=== PATIENT | female | born 1975 | race Caucasian/White ===

== ENCOUNTER 2017-04-08 10:18 | Inpatient (IN) | payer BC ==
[2017-04-08] MEDS ORDERED: Butorphanol 1 MG/ML SDV IVPUSH PRN (10:49)
[2017-04-08] MEDS ORDERED: Nalbuphine 10 MG/1 ML Vial IVPUSH PRN (10:49)
[2017-04-08] MEDS ORDERED: Sodium Chloride 0.9% 10 ML Syringe FLUSH PRN (10:49)
[2017-04-08] MEDS ORDERED: Misoprostol 200 MCG Tab PO PRN (10:49)
[2017-04-08] MEDS ORDERED: Water For Irrigation,Sterile 1,000 ML Container IRR PRN (10:49)
[2017-04-08] MEDS ORDERED: Lidocaine 1% 50 ML MDV INJECT PRN (10:49)
[2017-04-08] MEDS ORDERED: Methylergonovine 0.2 MG/1 ML Amp IM PRN (10:49)
[2017-04-08] MEDS ORDERED: Terbutaline 1 MG/ML SDV SUBCUT PRN (10:49)
[2017-04-08] MEDS ORDERED: Sodium Chloride 0.9% 2.5 ML Syringe FLUSH PRN (10:49)
[2017-04-08] MEDS ORDERED: Carboprost Tromethamine 250 MCG/1 ML Amp IM PRN (10:49)
[2017-04-08] MEDS ORDERED: Misoprostol 25 MCG (1/4 of 100 MCG) Tab VAG PRN (10:49)
[2017-04-08] MEDS ORDERED: Ampicillin 2 GM in Sodium Chloride 0.9% 100 ML IV ONE (10:49)
[2017-04-08] MEDS ORDERED: Oxytocin/0.9 % Sodium Chloride 30 UNIT/500 ML BAG IV SCH (11:00)
[2017-04-08] MEDS: Lactated Ringers 1,000 ML IV SCH ×3 (11:10→18:19)
[2017-04-08] MEDS: Ampicillin 1 GM in Sodium Chloride 0.9% 50 ML IV SCH ×3 (15:43→23:40)
[2017-04-08] MEDS ORDERED: ePHEDrine 50 MG/ML SDV ONE (17:36)
[2017-04-08] MEDS ORDERED: Ropivacaine 0.2% 2 MG/ML 20 ML SDV ONE (17:37)
[2017-04-08] MEDS ORDERED: fentaNYL 100 MCG/2 ML SDV ONE (17:37)
[2017-04-08] MEDS ORDERED: Ropivacaine HCl/PF 100 ML ONE (17:37)
--- NOTE | 2017-04-08 18:26 | PCM.PREANE ---
Preanesthetic Assessment - Procedure Proposed Procedure: labor epidural - Anesthesia/Transfusion/Family Hx Anesthesia History: Prior Anesthesia Without Reaction Family History of Anesthesia Reaction: No Transfusion History: No Prior Transfusion(s) - Review of Systems General: No Symptoms, Other (gestational diabetes) Pulmonary: No Symptoms Cardiovascular: Other (htn with ) Gastrointestinal: No Symptoms Neurological: No Symptoms Other: Reports: None - Physical Assessment Pulse: 92 O2 Sat by Pulse Oximetry: 96 Respiratory Rate: 20 Blood Pressure: 142/80 Height: 1.71 m Weight: 240 kg ASA Class: 2 Mental Status: Alert & Oriented x3 Airway Class: Mallampati = 2 Dentition: Reports: Normal Dentition Thyro-Mental Finger Breadths: 3 Mouth Opening Finger Breadths: 3 ROM/Head Extension: Full Lungs: Clear to Auscultation Cardiovascular: Regular Rate - Lab Values: Laboratory Last Values WBC 9.48 K/uL (4.0-11.0) 04/08/17 11:07 RBC 4.38 M/uL (4.30-5.90) 04/08/17 11:07 Hgb 13.8 g/dL (12.0-16.0) 04/08/17 11:07 Hct 40.4 % (36.0-46.0) 04/08/17 11:07 MCV 92.2 fL (80.0-98.0) 04/08/17 11:07 MCH 31.5 pg (27.0-32.0) 04/08/17 11:07 MCHC 34.2 g/dL (31.0-37.0) 04/08/17 11:07 RDW Std Deviation 45.3 fl (28.0-62.0) 04/08/17 11:07 RDW Coeff of Agatha 14 % (11.0-15.0) 04/08/17 11:07 Plt Count 170 K/uL (150-400) 04/08/17 11:07 MPV 9.90 fL (7.40-12.00) 04/08/17 11:07 Nucleated RBC % 0.0 /100WBC 04/08/17 11:07 Nucleated RBCs # 0 K/uL 04/08/17 11:07 POC Glucose 79 mg/dL (60-110) 04/08/17 16:58 Blood Type A POSITIVE 04/08/17 11:07 Antibody Screen NEGATIVE 04/08/17 11:07 - Allergies Allergies/Adverse Reactions: Allergies Allergy/AdvReac Type Severity Reaction Status Date / Time latex Allergy Rash Verified 08/02/14 09:27 miconazole Allergy Burning Verified 03/24/17 17:52 [From Monistat 1 Combo Pack] - Blood Blood Available: Yes Product(s) Available: PRBC - Anesthesia Plan Pre-Op Medication Ordered: None - Acknowledgements Anesthesia Type Planned: Epidural Pt an Appropriate Candidate for the Planned Anesthesia: Yes Alternatives and Risks of Anesthesia Discussed w Pt/Guardian: Yes Pt/Guardian Understands and Agrees with Anesthesia Plan: Yes PreAnesthesia Questionnaire Other OB/BYN History: pre-eclampsia with first . Patient states has had to be induced with every . Endocrine/Metabolic History: Reports: Diabetes, Gestational Oncologic (Cancer) History: Reports: Basal Cell Carcinoma - Past Surgical History GI Surgical History: Reports: None Endocrine Surgical History: Reports: None Oncologic Surgical History: Reports: Other (See Below) Other Oncologic Surgeries/Procedures: biopsy of skin >10 years - SUBSTANCE USE Smoking Status *Q: Never Smoker Second Hand Smoke Exposure: No Recreational Drug Use History: No - CURRENT (IN HOUSE) MEDS Current Meds: Current Medications Butorphanol Tartrate (Stadol) 1 mg IVPUSH ASDIRECTED PRN PRN Reason: Pain Carboprost Tromethamine (Hemabate Ds) 250 mcg IM ASDIRECTED PRN PRN Reason: Post Hemorrhage Lactated Ringer's (Ringers, Lactated) 1,000 mls @ 150 mls/hr IV ASDIRECTED OTPHER Last Admin: 04/08/17 18:19 Dose: 150 mls/hr Oxytocin/Sodium Chloride (Oxytocin 30 Unit/500 Ml-Ns) 30 unit in 500 mls @ 2 mls/hr IV TITRATE TOPHER; 2 MUNITS/MIN PRN Reason: Protocol Last Titration: 04/08/17 17:42 Dose: 10 munits/min, 10 mls/hr Ampicillin Sodium 1 gm/ Sodium (Chloride) 50 mls @ 100 mls/hr IV Q4H TOPHER Last Admin: 04/08/17 15:43 Dose: 100 mls/hr Lidocaine HCl (Xylocaine 1%) 50 ml INJECT .ONCE PRN PRN Reason: Laceration repair Methylergonovine Maleate (Methergine) 0.2 mg IM ASDIRECTED PRN PRN Reason: Post Hemorrhage Misoprostol (Cytotec) 200 mcg PO .ONCE PRN PRN Reason: Post Hemorrhage Misoprostol (Cytotec) 25 mcg VAG Q6H PRN PRN Reason: Cervical Ripening Last Admin: 04/08/17 11:23 Dose: 25 mcg Nalbuphine HCl (Nubain) 10 mg IVPUSH ASDIRECTED PRN PRN Reason: Pain (severe 7-10) Sodium Chloride (Saline Flush) 10 ml FLUSH ASDIRECTED PRN PRN Reason: Keep Vein Open Sodium Chloride (Saline Flush) 2.5 ml FLUSH ASDIRECTED PRN PRN Reason: Keep Vein Open Sterile Water (Sterile Water For Irrigation) 1,000 ml IRR ASDIRECTED PRN PRN Reason: delivery Terbutaline Sulfate (Brethine) 0.25 mg SUBCUT ASDIRECTED PRN PRN Reason: Tacysystole Discontinued Medications Ephedrine Sulfate (Ephedrine Sulfate) Confirm Administered Dose 50 mg .ROUTE .STK-MED ONE Stop: 04/08/17 17:37 Fentanyl (Sublimaze) Confirm Administered Dose 300 mcg .ROUTE .STK-MED ONE Stop: 04/08/17 17:38 Ampicillin Sodium 2 gm/ Sodium (Chloride) 100 mls @ 200 mls/hr IV ONETIME ONE Stop: 04/08/17 11:18 Last Admin: 04/08/17 11:23 Dose: 200 mls/hr Ropivacaine (Naropin 0.2%) Confirm Administered Dose 100 mls @ as directed .ROUTE .STK-MED ONE Stop: 04/08/17 17:38 Ropivacaine (Naropin 0.2%) Confirm Administered Dose 20 ml .ROUTE .STK-MED ONE Stop: 04/08/17 17:38
--- NOTE | 2017-04-08 18:38 | PCM.PRNOTE ---
- Free Text/Narrative Note: Called for a labor epidural for patient c/o labor pain. Patient identified and history reviewed. Patient has had 6 prior epidurals for labor, relates one occurrence of hypotension with epidural placement. Discussed procedure and risks including bleeding, infection, nerve pain, nerve damage and unsuccessful epidural. Patient agrees. Sitting up, sterile betadine prep times 3 and sterile drape. 1% lidocaine SQ at L4 #25 Touhy advanced os x 1, needle redirected CARMELITA but catheter does not thread x 2. Heme noted needle withdrawn. L3 localized as previous. Touhy advanced CARMELITA saline to approximately 5 cm. Catheter easily advanced to 10 cm. No heme no paresthesia. Test dose 3 ml 1.5% lidocaine with epinephrine 1:200,000. negative reaction. Bolus of fentanyl 100 mcg given with 4 ml 0.2% ropivicaine. Patient reports pain relief after 2 contractions. Level noted to be T10 bilaterally with cold/wet sensation. Epidural drip of 0.2% ropivicaine and Fentanyl 2 mcg/ml started at 8 ml/hr. Pt tolerated well.
[2017-04-08] MEDS ORDERED: Ondansetron 4 MG/2 ML SDV IVPUSH PRN (21:35)
[2017-04-09] MEDS ORDERED: Ampicillin/Sulbactam Na 3 GM in Sodium Chloride 0.9% 100 ML IV ONE (01:20)
[2017-04-09] MEDS ORDERED: Acetaminophen 500 MG Tab PO PRN (01:20)
[2017-04-09] MEDS ORDERED: Docusate Sodium 100 MG Cap PO PRN (01:20)
[2017-04-09] MEDS ORDERED: Misoprostol 200 MCG Tab PO PRN (01:20)
[2017-04-09] MEDS ORDERED: Witch Hazel Medicated Pads 40/Jar TOP PRN (01:20)
[2017-04-09] MEDS ORDERED: Benzocaine/Menthol 20%-0.5% Spray 78 GM Cannister TOP PRN (01:20)
[2017-04-09] MEDS ORDERED: Bisacodyl 10 MG Supp RECTAL PRN (01:20)
[2017-04-09] MEDS ORDERED: Lanolin 100% Cream 7 GM Tube TOP PRN (01:20)
--- NOTE | 2017-04-09 02:11 | OR ---
SURGEON: Kateryna Francis M.D. DATE OF PROCEDURE: 04/08/2017 PREOPERATIVE DIAGNOSIS: 38-week intrauterine , gestational diabetes type A2, transient hypertension of , group B strep positive, advanced maternal age. POSTOPERATIVE DIAGNOSIS: 38-week intrauterine , gestational diabetes type A2, transient hypertension of , group B strep positive, advanced maternal age. PROCEDURE: Pitocin induction of labor, term spontaneous vaginal delivery, group B strep prophylaxis. ANESTHESIA: Epidural. ESTIMATED BLOOD LOSS: Less than 200 mL. FINDINGS: Live born female. scores 8 and 9. Weight is pending at the time of dictation. Perineum intact. Placenta was delivered spontaneously. Rivera intact, but with trailing membranes. Manual exploration of the uterus revealed no retained placental products. COMPLICATIONS: None known. DISPOSITION: Mother and baby are in LDRP in good condition. BRIEF HISTORY: This is a 41-year-old female. She is G7, P6, presents at 38 weeks' gestation with elevated blood pressures over the last 3 weeks. She has had serial laboratory studies and serial 24-hour urines, all of which have been negative for preeclampsia, therefore she was given the diagnosis of transient hypertension of . She also has gestational diabetes. She has been on NPH 10 units at bedtime with good control of blood sugars. She presents for induction of labor. She received a single dose of Cytotec followed by Pitocin. She received an epidural for pain control. She had artificial rupture of membranes after receiving 2 doses of ampicillin. She continued, initially she was 1-2 cm and fairly thick and high. When she was 3-4 cm 70% effaced, she had an IUPC placed. Pitocin was continued to a maximum of 18 milliunits per minute. She had category 1 heart tones. She progressed to complete. DESCRIPTION OF PROCEDURE: The patient pushed once to a 5+ station, at which time the head was delivered spontaneously and atraumatically over the perineum with support with subsequent delivery of the 's shoulders and body without any difficulty. The was bulb suctioned by nose and mouth and handed to the mother in the presence of the nurse attending delivery. The was a liveborn female. scores 8 and 9. Weight is pending at the time of dictation. After the cord had ceased to pulsate, it was doubly clamped and cut. Cord blood was collected for cord ABGs as well as routine cord blood sampling. Pitocin was initiated after delivery of the infant to assist with delivery of the placenta which was delivered. Rivera intact, but with trailing membranes. After the membranes had been carefully and slowly removed with a ring forceps, manual exploration of the uterus was performed to ensure that there was no retained placenta or membrane fragments and there were was none. There were also no periurethral, vaginal sidewall, cervical, rectal, or perineal lacerations. EBL was less than 200 mL. There were no known complications. Mother and are in LDRP in good condition. She will be continued on Unasyn for prophylaxis due to manual exploration of the uterus. TONY / OMEGA /[id number]
[2017-04-09 06:24] LABS: CHLORIDE,CL 108 mmol/L (98-110); SODIUM,NA 137 mmol/L (136-146)
[2017-04-09] MEDS ORDERED: Ampicillin/Sulbactam Na 1.5 GM in Sodium Chloride 0.9% 50 ML IV SCH (07:30)
[2017-04-09] MEDS: Ibuprofen 800 MG Tab PO PRN ×3 (08:46→22:06)
[2017-04-09] MEDS: oxyCODONE 5 MG Tab PO PRN ×3 (09:32→22:07)
[2017-04-09] MEDS: Ampicillin/Sulbactam Na 1.5 GM in Sodium Chloride 0.9% 50 ML IV SCH ×3 (10:00→22:16)
--- NOTE | 2017-04-09 12:42 | PCM48HPAN ---
Post Anesthesia Note - EVALUATION WITHIN 48HRS OF ANESTHETIC Vital Signs in Normal Range: Yes Patient Participated in Evaluation: Yes Respiratory Function Stable: Yes Airway Patent: Yes Cardiovascular Function Stable: Yes Hydration Status Stable: Yes Pain Control Satisfactory: Yes Nausea and Vomiting Control Satisfactory: Yes Mental Status Recovered: Yes
[2017-04-10] MEDS: Ampicillin/Sulbactam Na 1.5 GM in Sodium Chloride 0.9% 50 ML IV SCH (04:13)
[2017-04-10] MEDS: Ibuprofen 800 MG Tab PO PRN (08:31)
[2017-04-10 08:32] VITALS: BP 122/72
--- NOTE | 2017-04-10 11:04 | PCM.PNPP ---
- General Info Date of Service: 04/10/17 Admission Dx/Problem (Free Text): 41 yo P7 s/p Subjective Update: Patient seen at bedside , denies any complains Functional Status: Reports: Pain Controlled, Tolerating Diet, Ambulating, Urinating - Review of Systems General: Reports: No Symptoms HEENT: Reports: No Symptoms Pulmonary: Reports: No Symptoms Cardiovascular: Reports: No Symptoms Gastrointestinal: Reports: No Symptoms Genitourinary: Reports: No Symptoms Musculoskeletal: Reports: No Symptoms Skin: Reports: No Symptoms Neurological: Reports: No Symptoms Psychiatric: Reports: No Symptoms - General Info Date of Service: 04/10/17 - Patient Data Vital Signs - Most Recent: Last Vital Signs Temp 36.5 C 04/10/17 08:00 Pulse 84 04/10/17 08:00 Resp 16 04/10/17 08:00 BP 122/72 04/10/17 08:00 Pulse Ox 95 04/10/17 08:00 Weight - Most Recent: 240 kg Med Orders - Current: Current Medications Acetaminophen (Tylenol Extra Strength) 1,000 mg PO Q4H PRN PRN Reason: Pain Benzocaine/Menthol (Dermoplast Pain Relief 20%-0.5% [place]) 78 gm TOP ASDIRECTED PRN PRN Reason: Perineal Comfort Measure Bisacodyl (Dulcolax) 10 mg RECTAL .ONCE PRN PRN Reason: Constipation Docusate Sodium (Colace) 100 mg PO BID PRN PRN Reason: Constipation Last Admin: 04/09/17 22:06 Dose: 100 mg Emollient Ointment (Lansinoh Hpa) 0 gm TOP ASDIRECTED PRN PRN Reason: Sore Nipples Ampicillin Sodium/Sulbactam (Sodium 1.5 gm/ Sodium Chloride) 50 mls @ 100 mls/ hr IV Q6H TOPHER Last Admin: 04/10/17 04:13 Dose: 100 mls/hr Ibuprofen (Motrin) 800 mg PO Q6H PRN PRN Reason: Pain Last Admin: 04/10/17 08:31 Dose: 800 mg Misoprostol (Cytotec) 400 mcg PO .ONCE PRN PRN Reason: excessive vaginal bleeding Oxycodone HCl (Oxycodone) 5 mg PO Q2H PRN PRN Reason: Pain Last Admin: 04/09/17 22:07 Dose: 5 mg Witch Thais (Tucks) 1 pad TOP ASDIRECTED PRN PRN Reason: comfort care Discontinued Medications Butorphanol Tartrate (Stadol) 1 mg IVPUSH ASDIRECTED PRN PRN Reason: Pain Carboprost Tromethamine (Hemabate Ds) 250 mcg IM ASDIRECTED PRN PRN Reason: Post Hemorrhage Ephedrine Sulfate (Ephedrine Sulfate) Confirm Administered Dose 50 mg .ROUTE .STK-MED ONE Stop: 04/08/17 17:37 Fentanyl (Sublimaze) Confirm Administered Dose 300 mcg .ROUTE .STK-MED ONE Stop: 04/08/17 17:38 Ampicillin Sodium 2 gm/ Sodium (Chloride) 100 mls @ 200 mls/hr IV ONETIME ONE Stop: 04/08/17 11:18 Last Admin: 04/08/17 11:23 Dose: 200 mls/hr Lactated Ringer's (Ringers, Lactated) 1,000 mls @ 150 mls/hr IV ASDIRECTED TOPHER Last Admin: 04/08/17 18:19 Dose: 150 mls/hr Oxytocin/Sodium Chloride (Oxytocin 30 Unit/500 Ml-Ns) 30 unit in 500 mls @ 2 mls/hr IV TITRATE TOPHER; 2 MUNITS/MIN PRN Reason: Protocol Last Titration: 04/08/17 23:24 Dose: 20 munits/min, 20 mls/hr Ampicillin Sodium 1 gm/ Sodium (Chloride) 50 mls @ 100 mls/hr IV Q4H TOPHER Last Admin: 04/08/17 23:40 Dose: 100 mls/hr Ropivacaine (Naropin 0.2%) Confirm Administered Dose 100 mls @ as directed .ROUTE .STK-MED ONE Stop: 04/08/17 17:38 Ampicillin Sodium/Sulbactam (Sodium 3 gm/ Sodium Chloride) 100 mls @ 200 mls/ hr IV ONETIME ONE Stop: 04/09/17 01:49 Last Admin: 04/09/17 04:00 Dose: 200 mls/hr Ampicillin Sodium/Sulbactam (Sodium 1.5 gm/ Sodium Chloride) 50 mls @ 200 mls/ hr IV Q6H TOPHER Stop: 04/10/17 01:30 Lidocaine HCl (Xylocaine 1%) 50 ml INJECT .ONCE PRN PRN Reason: Laceration repair Methylergonovine Maleate (Methergine) 0.2 mg IM ASDIRECTED PRN PRN Reason: Post Hemorrhage Misoprostol (Cytotec) 200 mcg PO .ONCE PRN PRN Reason: Post Hemorrhage Misoprostol (Cytotec) 25 mcg VAG Q6H PRN PRN Reason: Cervical Ripening Last Admin: 04/08/17 11:23 Dose: 25 mcg Nalbuphine HCl (Nubain) 10 mg IVPUSH ASDIRECTED PRN PRN Reason: Pain (severe 7-10) Ondansetron HCl (Zofran) 4 mg IVPUSH Q6H PRN PRN Reason: Nausea/Vomiting Last Admin: 04/08/17 21:57 Dose: 4 mg Ropivacaine (Naropin 0.2%) Confirm Administered Dose 20 ml .ROUTE .[facility]-MED ONE Stop: 04/08/17 17:38 Sodium Chloride (Saline Flush) 10 ml FLUSH ASDIRECTED PRN PRN Reason: Keep Vein Open Sodium Chloride (Saline Flush) 2.5 ml FLUSH ASDIRECTED PRN PRN Reason: Keep Vein Open Last Admin: 04/09/17 22:08 Dose: 2.5 ml Sterile Water (Sterile Water For Irrigation) 1,000 ml IRR ASDIRECTED PRN PRN Reason: delivery Last Admin: 04/09/17 00:50 Dose: 1,000 ml Terbutaline Sulfate (Brethine) 0.25 mg SUBCUT ASDIRECTED PRN PRN Reason: Tacysystole - Infant Interaction Infant Disposition, : [place] at Bedside Interaction: Holding Infant Feeding: Continues to Breastfeed Support Person: - Recovery Exam Fundal Tone: Firm Fundal Level: At Umbilicus Fundal Placement: Midline Lochia Amount: Scant Lochia Color: Rubra/Red Perineum Description: Intact, Minimal Bruising/Swelling Episiotomy/Laceration: None Bladder Status: Nonpalpable Urinary Elimination: Voided - Exam General: Alert Lungs: Clear to Auscultation, Normal Respiratory Effort Cardiovascular: Regular Rate, Regular Rhythm GI/Abdominal Exam: Normal Bowel Sounds Extremities: Normal Inspection Psy/Mental Status: Alert, Normal Affect - Problem List & Annotations (1) Vaginal delivery SNOMED Code(s): 811193993 Code(s): O80 - ENCOUNTER FOR FULL-TERM UNCOMPLICATED DELIVERY Status: Acute Current Visit: No - Problem List Review Problem List Initiated/Reviewed/Updated: Yes - Assessment Assessment:: 41 yo P7 s/p , PPD X1 - Plan Plan:: 41 yo P7 s/p stable PPD1 Plan discharge home today PNV and Iron Pain control with OTC meds Call [facility] if Fever> 101 , heavy vaginal bleeding Nothing in the vagina for 6 weeks
== END 2017-04-10 11:40 | disposition home or self-care (01) | DRG 560 ==
LOC: MW.OBCHECK 10:18 → MW.OB 10:26 → OBSVTOIN 04-09 00:50
PROVIDERS: ADMIT Obstetrics & Gynecology; ATTEND Obstetrics & Gynecology
PROC: 10E0XZZ Delivery of Products of Conception, External Approach (ICD-10-PCS; principal; 2017-04-09)
PROC: 3E0P3VZ Introduction of Hormone into Female Reproductive, Percutaneous Approach (ICD-10-PCS; 2017-04-09)
PROC: 10907ZC Drainage of Amniotic Fluid, Therapeutic from Products of Conception, Via Natural or Artificial Opening (ICD-10-PCS; 2017-04-09)
PROC: 10H073Z Insertion of Monitoring Electrode into Products of Conception, Via Natural or Artificial Opening (ICD-10-PCS; 2017-04-09)
DX: O24.424 Gestational diabetes mellitus in childbirth, insulin controlled (principal); O13.4 Gestational [pregnancy-induced] hypertension without significant proteinuria, complicating childbirth; O09.43 Supervision of pregnancy with grand multiparity, third trimester; O09.523 Supervision of elderly multigravida, third trimester; O99.824 Streptococcus B carrier state complicating childbirth; Z3A.38 38 weeks gestation of pregnancy; Z37.0 Single live birth
CPT/HCPCS: 01967; 36415; 51702; 59025; 59409; 80048; 82962; 85014; 85018; 85027; 86850; 86900; 86901; 88307; A9270-GY; J0287; J0290; J0295; J2405; J2590; J7030; J7050; J7120

== ENCOUNTER 2018-01-24 08:29 | Day surgery (SDC) | payer BC ==
[~2018-01-24 08:29] MED LIST: Lactated Ringers 1,000 ML IV SCH; Lidocaine 2% 5 ML SDV ONE; Midazolam 1 MG/ML 2 ML SDV ONE; Propofol 200 MG/20 ML SDV ONE; Sodium Chloride 0.9% 10 ML Syringe FLUSH PRN; Sodium Chloride 0.9% 2.5 ML Syringe FLUSH PRN; fentaNYL 100 MCG/2 ML SDV ONE
--- NOTE | 2018-01-24 08:49 | PCM.PREANE ---
Preanesthetic Assessment - Anesthesia/Transfusion/Family Hx Anesthesia History: No Prior Anesthesia Family History of Anesthesia Reaction: No Transfusion History: No Prior Transfusion(s) Intubation History: Unknown - Review of Systems General: No Symptoms Pulmonary: No Symptoms Cardiovascular: No Symptoms Gastrointestinal: Hematochezia Neurological: No Symptoms Other: Reports: None - Physical Assessment Height: 1.7 m Weight: 103.873 kg ASA Class: 2 Mental Status: Alert & Oriented x3 Airway Class: Mallampati = 2 Dentition: Reports: Normal Dentition Thyro-Mental Finger Breadths: 2 Mouth Opening Finger Breadths: 2 ROM/Head Extension: Full Lungs: Clear to Auscultation, Normal Respiratory Effort Cardiovascular: Regular Rate, Regular Rhythm - Allergies Allergies/Adverse Reactions: Allergies Allergy/AdvReac Type Severity Reaction Status Date / Time latex Allergy Rash Verified 01/19/18 16:44 miconazole Allergy Burning Verified 01/19/18 16:44 [From Monistat 1 Combo Pack] - Blood Blood Available: No - Anesthesia Plan Pre-Op Medication Ordered: None - Acknowledgements Anesthesia Type Planned: MAC Pt an Appropriate Candidate for the Planned Anesthesia: Yes Alternatives and Risks of Anesthesia Discussed w Pt/Guardian: Yes Pt/Guardian Understands and Agrees with Anesthesia Plan: Yes PreAnesthesia Questionnaire SOLUTION SPEC History: Reports: Other OB/BYN History: pre-eclampsia with first . Patient states has had to be induced with every . Endocrine/Metabolic History: Reports: Obesity/BMI 30+ Oncologic (Cancer) History: Reports: Basal Cell Carcinoma Other Oncologic History: basal cell removed from abdomen - Past Surgical History GI Surgical History: Reports: None Endocrine Surgical History: Reports: None Oncologic Surgical History: Reports: Other (See Below) Other Oncologic Surgeries/Procedures: biopsy of skin >10 years - SUBSTANCE USE Smoking Status *Q: Never Smoker Recreational Drug Use History: No - HOME MEDS Home Medications: Home Meds Calcium Carbonate/Vitamin D3 [Calcium 250+D] 250 mg PO DAILY 01/19/18 [History] Cholecalciferol (Vitamin D3) [Vitamin D3] 1,000 unit PO DAILY 01/19/18 [History] Fish Oil/[place]-3 Fatty Acids [Fish Oil 1,000 MG] 1,000 mg PO BIDMEALS 01/19/18 [ History] Multivitamin [Multiple Vitamins] 1 tab PO DAILY 01/19/18 [History] Vit A/C/E/Zinc/Selenium/Copper [Vision Formula Tablet] 1 tab PO DAILY 01/19/18 [ History] - CURRENT (IN HOUSE) MEDS Current Meds: Current Medications Lactated Ringer's (Ringers, Lactated) 1,000 mls @ 125 mls/hr IV ASDIRECTED TOPHER Sodium Chloride (Saline Flush) 10 ml FLUSH ASDIRECTED PRN PRN Reason: Keep Vein Open Sodium Chloride (Saline Flush) 2.5 ml FLUSH ASDIRECTED PRN PRN Reason: Keep Vein Open Sodium Chloride (Saline Flush) 10 ml FLUSH ASDIRECTED PRN PRN Reason: Keep Vein Open Sodium Chloride (Saline Flush) 2.5 ml FLUSH ASDIRECTED PRN PRN Reason: Keep Vein Open Discontinued Medications Fentanyl (Sublimaze) Confirm Administered Dose 100 mcg .ROUTE .STK-MED ONE Stop: 01/24/18 07:02 Lidocaine (Xylocaine-Mpf 2%) Confirm Administered Dose 5 ml .ROUTE .STK-MED ONE Stop: 01/24/18 07:02 Midazolam HCl (Versed 1 Mg/Ml) Confirm Administered Dose 2 mg .ROUTE .STK-MED ONE Stop: 01/24/18 07:02 Propofol (Diprivan 20 Ml) Confirm Administered Dose 400 mg .ROUTE .STK-MED ONE Stop: 01/24/18 07:02
[2018-01-24] MEDS ORDERED: Glycopyrrolate 0.2 MG/ML SDV ONE ×2 (09:02→09:06)
--- NOTE | 2018-01-24 09:22 | PCM.OPNOTE ---
- General Post-Op/Procedure Note Date of Surgery/Procedure: 01/24/18 Operative Procedure(s): Diagnostic colonoscopy Findings: Cecal polyp 2-3 mm, large distal sigmoid colonic polyp ~2 cm in size with broad based stalk located at 10 cm from anus Pre Op Diagnosis: Bright red bleeding per rectum Post-Op Diagnosis: Cecal polyp, distal sigmoid polyp Anesthesia Technique: MAC Primary Surgeon: Ritu Golden Condition: Good
--- NOTE | 2018-01-24 09:41 | PCM.POSTAN ---
POST ANESTHESIA ASSESSMENT - MENTAL STATUS Mental Status: Alert, Oriented - RESPIRATORY Respiratory Status: Respiratory Rate WNL, Airway Patent, O2 Saturation Stable - CARDIOVASCULAR CV Status: Pulse Rate WNL, Blood Pressure Stable - GASTROINTESTINAL GI Status: No Symptoms - POST OP HYDRATION Hydration Status: Adequate & Stable
--- NOTE | 2018-01-24 10:11 | PCM48HPAN ---
Post Anesthesia Note - EVALUATION WITHIN 48HRS OF ANESTHETIC Vital Signs in Normal Range: Yes Patient Participated in Evaluation: Yes Respiratory Function Stable: Yes Airway Patent: Yes Cardiovascular Function Stable: Yes Hydration Status Stable: Yes Pain Control Satisfactory: Yes Nausea and Vomiting Control Satisfactory: Yes Mental Status Recovered: Yes Resp Rate: 12 - COMMENTS/OBSERVATIONS Free Text/Narrative:: no anesthesia problems
[2018-01-24 10:41] VITALS: BP 130/93
--- NOTE | 2018-01-25 00:03 | OR ---
SURGEON: EDIE NUNEZ MD DATE OF PROCEDURE: 01/24/2018 PREOPERATIVE DIAGNOSIS: Bright red bleeding per rectum. POSTOPERATIVE DIAGNOSES: 1. Cecal polyp. 2. Large sigmoid colon polyp. PROCEDURE PERFORMED: Diagnostic colonoscopy. ANESTHESIA: Monitored anesthesia care. INSTRUMENT USED: Olympus colonoscope. EXTENT OF EXAM: To the cecum. PREPARATION: Good. LIMITATIONS: None. INDICATIONS: The patient is a 42-year-old female, who presents with several months of bright red bleeding per rectum despite aggressive fiber therapy. She has a family history of colon cancer. The decision was made to proceed with a diagnostic colonoscopy. I explained the procedure as well as the expected perioperative course. We discussed the risks including bleeding, infection, or damage to surrounding structures including perforation. The patient verbalized understanding and wishes to proceed. PROCEDURE IN DETAIL: The patient was brought into the endoscopy suite and placed in a left lateral decubitus position. A time-out was completed verifying the patient's name, age, date of , allergies, and procedure to be performed. Monitored anesthesia care was induced, and continuous oxygen was provided via nasal cannula throughout the procedure. After adequate sedation was achieved, a digital rectal exam was performed. This exam was within normal limits. A well- lubricated colonoscope was inserted in the rectum. Just above the rectum in the distal sigmoid colon, I encountered a large irregular-appearing colon polyp. I was able to get around this and advanced the scope under direct visualization to the level of the cecum. The cecum was identified by both visual and anatomic landmarks. A photograph was taken of the cecal cap as well as with the scope in the retroflexed position. Upon retroflexion, I found a 2 to 3 mm colon polyp in the base of the cecum. This was removed using a cold biopsy forceps. The scope was then fully withdrawn while examining the color, texture, anatomy, and integrity of the mucosa from the cecum to the anal canal. At 10 cm from the anus and in the distal sigmoid colon, I again encountered the large irregular- appearing mass. This was pedunculated, but had a broad base to it. Given its large size and broad base, it is felt that the patient would be better served by seeing a colorectal surgeon to have them resect this. Biopsies were taken of the colon polyp and sent labeled as sigmoid colon polyp. The mass was soft and friable. Hemostasis was confirmed at the end of the case. The scope was then brought into the rectum and retroflexed to allow visualization of the anal canal opening. This appeared normal and a photograph was taken. The cecum to anus time was 10 minutes. The patient tolerated the procedure well and was taken to PACU in stable condition. ENDOSCOPIC DIAGNOSES: 1. Cecal polyp. 2. Large sigmoid colon polyp. RECOMMENDATIONS: I visited with the patient in the postoperative area. I explained that the polyp was most likely the cause of her bleeding. I will refer her to a colorectal surgeon to undergo evaluation and treatment for this. They may be able to perform a saline lift and remove this safely endoscopically. We will follow up on the biopsy results as soon as they become available. NIKO DUFF /[id number] CECY
== END 2018-01-24 10:20 | disposition home or self-care (01) ==
LOC: MW.SDS 08:29
PROVIDERS: ATTEND Surgery
DX: K62.5 Hemorrhage of anus and rectum (principal); D12.0 Benign neoplasm of cecum; D12.5 Benign neoplasm of sigmoid colon; E66.9 Obesity, unspecified; Z68.35 Body mass index [BMI] 35.0-35.9, adult; F41.9 Anxiety disorder, unspecified; Z79.899 Other long term (current) drug therapy; Z91.040 Latex allergy status; Z88.8 Allergy status to other drugs, medicaments and biological substances; Z80.0 Family history of malignant neoplasm of digestive organs
CPT/HCPCS: 45380; 81025; J2250; J2704; J3010; J3490; J7120; 88305